=== PATIENT | female | born 1970 | race Caucasian/White ===

== ENCOUNTER 2021-12-12 22:01 | Emergency (ER) | payer SELFPAY ==
[~2021-12-12] VITALS: Ht 157.5 cm; Wt 120.0 kg
[2021-12-12] MEDS ORDERED: SODIUM CHLORIDE 0.9% 1,000 ML IV ONE (22:15)
[2021-12-12] MEDS ORDERED: EPINEPHRINE 1:1000 1 MG/ML AMP IM ONE (22:15)
[2021-12-12] MEDS ORDERED: DIPHENHYDRAMINE 50MG/ML VIAL IV ONE (22:15)
[2021-12-12] MEDS ORDERED: METHYLPREDNISOLONE SOD SUCC 125 MG/2 ML VIAL IV ONE (22:15)
[2021-12-12] MEDS ORDERED: FAMOTIDINE 20MG/2ML VIAL IV ONE (22:15)
[2021-12-13] MEDS ORDERED: B25 PO (01:47)
[2021-12-13] MEDS ORDERED: EPIN0.3P3 IM (01:47)
[2021-12-13 02:05] VITALS: BP 131/75
== END 2021-12-13 02:06 | disposition home or self-care (01) ==
LOC: ER 22:01
DX: L27.0 Generalized skin eruption due to drugs and medicaments taken internally (principal); R22.0 Localized swelling, mass and lump, head; T50.995A Adverse effect of other drugs, medicaments and biological substances, initial encounter; Y92.89 Other specified places as the place of occurrence of the external cause; E11.9 Type 2 diabetes mellitus without complications; Z79.899 Other long term (current) drug therapy; Z79.02 Long term (current) use of antithrombotics/antiplatelets
CPT/HCPCS: 96372; 96374; 96375; 99284; J1200; J2930; J3490; J7030